=== PATIENT | male | born 1990 | race Caucasian/White ===

== ENCOUNTER → 2021-07-28 | Outpatient (CLI) | payer MEDICAID ==
--- NOTE | 2021-07-28 14:36 | KCIC ---
XR FOOT_RIGHT 3 VIEWS DATE: 07/28/2021 1:15 PM INDICATION: RT FOOT/TOE PAIN, STUBBED RT 5TH TOE 3 DAYS AGO COMPARISON: None. FINDINGS: Bones: Acute nondisplaced transversely oriented fracture at the proximal metaphysis of the fifth prox imal phalanx. No intra-articular extension is seen. Joints: The joint spaces are normal. Miscellaneous: None. IMPRESSION: Acute nondisplaced fifth proximal phalanx fracture. Electronically signed by: Jerry Mullins MD (07/28/2021 2:34 PM) [id number]
== END ==
LOC: KCIC 12:50
PROVIDERS: ATTEND Family Medicine
DX: S99.201A Unspecified physeal fracture of phalanx of right toe, initial encounter for closed fracture (principal); X58.XXXA Exposure to other specified factors, initial encounter; Y93.89 Activity, other specified; Y92.89 Other specified places as the place of occurrence of the external cause; Y99.8 Other external cause status
CPT/HCPCS: 73630

== ENCOUNTER → 2021-08-20 | Outpatient (CLI) | payer MEDICAID ==
--- NOTE | 2021-08-20 12:14 | KCIC ---
XR FOOT_RIGHT 2 VIEWS DATE: 08/20/2021 10:55 AM INDICATION: PAIN IN TOE OF RIGHT FOOT. Eval healing of 5th digit fx from 3-4 weeks ago. Pt is improv ing. COMPARISON: None. FINDINGS: Bones: Unchanged alignment of the fifth proximal phalanx fracture, with new callus formation. Joints: The joint spaces are normal. Miscellaneous: None. IMPRESSION: New healing changes of patient's fifth proximal phalanx fracture, with unchanged alignment. Electronically signed by: Jerry Mullins MD (08/20/2021 12:12 PM) [id number]
== END ==
LOC: KCIC 10:43
PROVIDERS: ATTEND Family Medicine
DX: S92.514D Nondisplaced fracture of proximal phalanx of right lesser toe(s), subsequent encounter for fracture with routine healing (principal); X58.XXXD Exposure to other specified factors, subsequent encounter
CPT/HCPCS: 73620